=== PATIENT | male | born 1975 | race Hispanic/Latino ===

== ENCOUNTER 2022-01-26 10:47 | Emergency (ER) | payer OTHER ==
[2022-01-26] MEDS ORDERED: Boostrix 0.5 ML (Tdap) VIAL ONE (11:43)
[2022-01-26] MEDS ORDERED: Bupivacaine PF 0.5% 30 ML VIAL ONE (11:53)
[2022-01-26] MEDS ORDERED: Lidocaine 1% PF 5 ML VIAL ONE (11:53)
[2022-01-26] MEDS ORDERED: Bacitracin 1 PK ONE (12:45)
== END 2022-01-26 12:55 | disposition home or self-care (01) ==
LOC: CSHERS 10:47
DX: S61.217A Laceration without foreign body of left little finger without damage to nail, initial encounter (principal); W23.0XXA Caught, crushed, jammed, or pinched between moving objects, initial encounter; Y92.69 Other specified industrial and construction area as the place of occurrence of the external cause; Z23 Encounter for immunization
CPT/HCPCS: 12001; 90471; 90715; S0020

== ENCOUNTER 2022-02-03 06:08 | Emergency (ER) | payer SELFPAY | END 2022-02-03 06:24 | disposition home or self-care (01) | LOC: CSHERS 06:08 | DX: S61.217D Laceration without foreign body of left little finger without damage to nail, subsequent encounter (principal); X58.XXXD Exposure to other specified factors, subsequent encounter ==